=== PATIENT | male | born 1950 | race Caucasian/White ===

== ENCOUNTER 2016-08-23 10:06 | Emergency (ER) | payer SELFPAY ==
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
[2016-08-23 12:17] VITALS: BP 155/101
--- NOTE | 2016-08-23 15:02 | Diagnostic Imaging Report ---
SUSAN PEREZ [facility] [address] [facility] [address] [address] Report Submission Date: August 23, 2016 1:09:31 PM CDT Patient Study Name: NATHAN INFANTE Date: August 23, 2016 11:26:31 AM CDT Modality Type: CR Gender: M Description: SHOULDER : 48 Institution: [facility] Physician: SUSAN PEREZ Left shoulder 3 views Clinical history pain Technique internal rotation external rotation scapular Y Findings: Arthritic changes are present at the glenohumeral joint and ac joint. No fracture dislocation is identified. Bone density is normal Impression: Arthritic changes otherwise negative left shoulder Electronically signed on August 23, 2016 1:09:31 PM CDT by: Tonny SAMSON
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
== END 2016-08-23 12:16 | disposition home or self-care (01) ==
LOC: ED 10:06
DX: S19.9XXA Unspecified injury of neck, initial encounter (principal); V43.52XA Car driver injured in collision with other type car in traffic accident, initial encounter; W22.11XA Striking against or struck by driver side automobile airbag, initial encounter; Y92.414 Local residential or business street as the place of occurrence of the external cause; Y99.9 Unspecified external cause status; S49.92XA Unspecified injury of left shoulder and upper arm, initial encounter
CPT/HCPCS: 72125; 73030